=== PATIENT | female | born 1950 | race Hispanic/Latino ===

== ENCOUNTER 2017-03-15 11:14 | Day surgery (SDC) | payer BC ==
[2017-03-15 11:53] VITALS: BMI 36.3
[2017-03-15 12:01] VITALS: RESP 18
[2017-03-15] MEDS ORDERED: Lidocaine 2% Jelly (Uro-Jet) ONE (14:25)
[2017-03-15] MEDS ORDERED: Iohexol 240 (50 ml) ONE (14:39)
[2017-03-15] MEDS ORDERED: Tmp-Smz 800 mg-160 mg DS Tab PO STA (15:01)
[2017-03-15 15:18] VITALS: BP 132/60; PULSE 77; TEMP 97.7; O2SAT 98
--- NOTE | 2017-03-15 21:47 | OP ---
PROCEDURE DATE: 03/15/2017 PREOPERATIVE DIAGNOSIS: Right lower pole hydronephrosis. 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 PROCEDURE: Cystoscopy with right retrograde ureteropyelogram. SURGEON: Dr. Andrew. ANESTHESIA: Local. DESCRIPTION OF OPERATION: After 2% Xylocaine anesthesia was given locally, the patient was placed lithotomy and prepped and draped in the usual manner. A 22-[place] cystourethroscope was introduced. The bladder showed no tumors, foreign bodies, or stones. Left orifice within normal limits, clear efflux. The right orifice was completely duplicated with clear efflux from both. The CAT scan that was done showed a questionable lower pole right ureteropelvic junction obstruction. I catheterized the upper orifice, which was the drainage system of the lower pole and using an open-ended catheter, injected contrast. The ureter was completely normal, but there was a ureteropelvic junction obstruction compatible what the CAT finding was. It was a grade 2 to 3. She tolerated the procedure well. The bladder was drained. Cystoscope was removed, and she was brought back to PACU in good condition. Chema Andrew MD
--- NOTE | 2017-03-16 11:09 | RAD ---
PROCEDURE: Retrograde pyelogram HISTORY: RIGHT HYDRO. COMPARISON: TECHNIQUE: Fluoroscopy was provided in the operating room. 29.3 seconds of fluoro time was used. Six images were submitted FINDINGS: The study shows right-sided hydronephrosis. The ureter is normal in caliber. IMPRESSION: As above
== END 2017-03-15 15:45 | disposition home or self-care (01) ==
LOC: OPSURG 11:14
PROVIDERS: ATTEND Urology
DX: N13.1 Hydronephrosis with ureteral stricture, not elsewhere classified (principal)
CPT/HCPCS: 52005; 74420; 82948; C1758 ×2; C1769 ×2; Q9966